=== PATIENT | female | born 1985 | race Caucasian/White ===

== ENCOUNTER 2019-01-22 18:13 | Emergency (ER) | payer MEDICAID ==
[~2019-01-22] VITALS: Ht 157.5 cm; Wt 83.6 kg
[2019-01-22 18:36] VITALS: BP 118/98
== END 2019-01-22 19:07 | disposition left against medical advice (07) ==
LOC: EMS 18:16
DX: Z53.21 Procedure and treatment not carried out due to patient leaving prior to being seen by health care provider (principal)